=== PATIENT | female | born 1960 | race Caucasian/White ===

== ENCOUNTER 2017-08-23 12:01 | Day surgery (SDC) | payer OTHER ==
[2017-08-23] MEDS ORDERED: PROPOFOL 40 ML (14:03)
== END 2017-08-23 16:54 | disposition home or self-care (01) ==
LOC: GIL 12:01
DX: Z12.11 Encounter for screening for malignant neoplasm of colon (principal); K29.50 Unspecified chronic gastritis without bleeding; D12.2 Benign neoplasm of ascending colon; D12.4 Benign neoplasm of descending colon; K57.90 Diverticulosis of intestine, part unspecified, without perforation or abscess without bleeding; K64.8 Other hemorrhoids; E78.5 Hyperlipidemia, unspecified; E66.9 Obesity, unspecified; Z68.34 Body mass index [BMI] 34.0-34.9, adult
CPT/HCPCS: 43239; 88305; 88312

== ENCOUNTER 2019-01-02 07:17 | Day surgery (SDC) | payer OTHER ==
[~2019-01-02 07:17] MED LIST: MITOMYCIN 5 MG INJ OP
[2019-01-02] MEDS ORDERED: PROPOFOL 20 ML (09:14)
[2019-01-02] MEDS ORDERED: MIDAZOLAM 1 MG/ML 2 ML INJ (09:23)
[2019-01-02] MEDS ORDERED: BALANCED SALT SOLN 15 ML OPH IRRIG (09:24)
[2019-01-02] MEDS: LIDOCAINE 1.5%/EPI MPF (SDV) 30 ML VIAL (09:24)
[2019-01-02] MEDS ORDERED: MIDAZOLAM 1 MG/ML 2 ML INJ IV (10:00)
[2019-01-02] MEDS ORDERED: FENTAnyl 50 MCG/ML VIAL IV ×3 (10:00)
[2019-01-02] MEDS ORDERED: EPHEDrine 25 MG/5 ML SYG IV (10:00)
[2019-01-02] MEDS ORDERED: METOCLOPRAMIDE 10 MG INJ IV (10:00)
[2019-01-02] MEDS ORDERED: DIPHENHYDRAMINE 50 MG INJ IV (10:00)
[2019-01-02] MEDS ORDERED: LABETALOL HCL 20MG INJ IV (10:00)
[2019-01-02] MEDS ORDERED: OXYCODONE/ACETAMINOPHEN (5/325) TAB PO ×2 (10:00)
[2019-01-02] MEDS ORDERED: hydrALAzine 20 MG INJ IV (10:00)
[2019-01-02] MEDS ORDERED: ONDANSETRON 4 MG INJ IV (10:00)
[2019-01-02] MEDS: MEPERIDINE 25 MG INJ IV (10:51)
[2019-01-02] MEDS ORDERED: MITOMYCIN 5 MG INJ RIGHT EYE (12:00)
== END 2019-01-02 11:58 | disposition home or self-care (01) ==
LOC: SDS 07:17
DX: H11.001 Unspecified pterygium of right eye (principal)
CPT/HCPCS: 65420